=== PATIENT | female | born 1970 | race Caucasian/White ===

== ENCOUNTER 2021-08-15 19:10 | Emergency (ER) | payer OTHER, MEDICAID ==
[~2021-08-15] VITALS: Ht 167.6 cm; Wt 90.7 kg
--- NOTE | 2021-08-15 19:17 | NUR ---
Patient to ER bed 08 to gown for evaluation. Side rails up.
[2021-08-15 19:23] VITALS: BP_SYST 125
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
--- NOTE | 2021-08-15 19:34 | NUR ---
in to see patient.
[2021-08-15] MEDS ORDERED: cefTRIAXone 1 GM in LIDOCAINE 1%, 20 ML MDV 2.1 ML IM ONE (19:45)
[2021-08-15] MEDS ORDERED: AZITHROMYCIN 250 MG TABLET PO ONE (19:45)
[2021-08-15 19:49] LABS: BILIRUBIN,URINE NEGATIVE (NEGATIVE); BLOOD, URINE NEGATIVE (NEGATIVE); CLARITY/URINE SL CLOUDY (CLEAR); COLOR,URINE YELLOW (YELLOW); GLUCOSE,URINE NEGATIVE (NEGATIVE); KETONES,URINE NEGATIVE (NEGATIVE); LEUKOCYTE ESTERASE ,URINE NEGATIVE (NEGATIVE); NITRITE, URINE NEGATIVE (NEGATIVE); PROTEIN URINE NEGATIVE (NEGATIVE); UROBILINOGEN,URINE 0.2 (0.2-1.0)
[2021-08-15 20:01] LABS: BACTERIA,URINE MODERATE /HPF (None Seen); MUCUS,URINE None Seen /LPF (None Seen); RBC,URINE NONE SEEN /HPF (0-3)
--- NOTE | 2021-08-15 20:09 | NUR ---
patient is getting x ray
--- NOTE | 2021-08-15 20:29 | NUR ---
Pt requesting pain medication , notified
[2021-08-15] MEDS ORDERED: ACETAMINOPHEN 325 MG TABLET PO ONE (20:30)
[2021-08-15] MEDS ORDERED: ACET325T53 PO (20:35)
[2021-08-15] MEDS ORDERED: CYCL10TA24 PO (20:35)
[2021-08-15] MEDS ORDERED: MORPHINE 2 MG/ML INJ. SYRINGE IM ONE (20:45)
[2021-08-15] MEDS ORDERED: ONDANSETRON 4 MG ODT TAB PO ONE (20:45)
[2021-08-15 21:36] VITALS: BP_SYST 116
--- NOTE | 2021-08-15 21:36 | NUR ---
Patient given written and verbal discharge instructions and verbalizes understanding. ER MD discussed with patient the results and treatment provided. Patient in stable condition. ID arm band removed. Rx of flexeril and tylenol given. Patient educated on pain management and to follow up with PMD. Pain Scale 0/10 Opportunity for questions provided and answered. Medication side effect fact sheet provided.
[2021-08-18 17:07] LABS: CHLAMYDIA TRACHOMATIS NAA Negative (Negative); NEISSERIA GONORRHOEAE NAA Negative (Negative)
== END 2021-08-15 21:36 | disposition home or self-care (01) ==
LOC: SED 19:10
DX: M54.2 Cervicalgia (principal); M25.561 Pain in right knee; M25.562 Pain in left knee; W01.0XXA Fall on same level from slipping, tripping and stumbling without subsequent striking against object, initial encounter; Y93.89 Activity, other specified; Y92.89 Other specified places as the place of occurrence of the external cause; Y99.8 Other external cause status
CPT/HCPCS: 99284; 87491; 87591; 81000; 87086; 72040; 72072; 72100; 73560; 96372; Q0162; J0696; J2001; J2270; Q0144

== ENCOUNTER 2022-04-21 13:35 | Emergency (ER) | payer OTHER, MEDICAID ==
[~2022-04-21] VITALS: Ht 165.1 cm; Wt 88.5 kg
[~2022-04-21 13:35] MED LIST: ACET325T53 PO; CYCL10TA24 PO
[2022-04-21 13:40] VITALS: BP_SYST 108
[2022-04-21 14:38] LABS: BILIRUBIN,URINE NEGATIVE (NEGATIVE); BLOOD, URINE NEGATIVE (NEGATIVE); CLARITY/URINE SL CLOUDY (CLEAR); COLOR,URINE YELLOW (YELLOW); GLUCOSE,URINE NEGATIVE (NEGATIVE); KETONES,URINE NEGATIVE (NEGATIVE); LEUKOCYTE ESTERASE ,URINE NEGATIVE (NEGATIVE); NITRITE, URINE NEGATIVE (NEGATIVE); PH,URINE 6.5 (5.0-8.0); PROTEIN URINE NEGATIVE (NEGATIVE); UROBILINOGEN,URINE 0.2 (0.2-1.0)
[2022-04-21] MEDS ORDERED: NACL 0.9% 1,000 ML IV ONE (16:00)
[2022-04-21] MEDS ORDERED: fentaNYL CITRATE/PF 100 MCG/2 ML AMP IVP ONE (16:00)
[2022-04-21] MEDS ORDERED: ONDANSETRON HCL 4 MG/2 ML VIAL IVP ONE (16:00)
[2022-04-21] MEDS ORDERED: KETOROLAC TROMETHAMINE 30 MG VIAL IVP ONE (16:00)
[2022-04-21 16:41] LABS: BASOPHILS % (AUTO) 0.2 % (0.0-2.0); EOSINOPHILS # (AUTO) 0.1 K/uL (0.0-0.4); EOSINOPHILS % (AUTO) 1.1 % (0.0-4.0); HEMATOCRIT 35.5 % (36-48); HEMOGLOBIN 11.9 g/dL (12.0-16.0); LYMPHOCYTES # (AUTO) 2.4 K/uL (1.0-5.5); LYMPHOCYTES % (AUTO) 26.1 % (20.5-51.5); MEAN CORPUSCULAR HEMOGLOBIN 32 pg (27-31); MEAN CORPUSCULAR HGB CONC 34 % (32-36); MEAN CORPUSCULAR VOLUME 96 fL (79.0-98.0); MONOCYTES # (AUTO) 0.6 K/uL (0.0-1.0); MONOCYTES % (AUTO) 6.9 % (1.7-9.3); NEUTROPHILS # (AUTO) 6.1 K/uL (1.8-7.7); NEUTROPHILS % (AUTO) 65.7 % (40.0-70.0); PLATELET COUNT (AUTO) 252 K/uL (130-430); RED CELL DISTRIBUTION WIDTH 13.3 % (9.0-15.0); WHITE BLOOD COUNT (AUTO) 9.2 K/uL (4.8-10.8)
[2022-04-21 16:55] LABS: PROTHROMBIN TIME 9.8 SECS (9.5-12.5)
[2022-04-21 17:04] LABS: ALANINE AMINOTRANSFERASE 24 U/L (12-78); ALBUMIN 3.3 g/dL (3.4-4.8); ANION GAP 9 (5-15); ASPARTATE AMINOTRANSFERASE 15 U/L (10-37); CALCIUM 8.7 mg/dL (8.4-11.0); CHLORIDE 105 mmol/L (98-107); CREATININE 0.93 mg/dL (0.55-1.30); GLUCOSE 95 mg/dL (70-99); TOTAL BILIRUBIN 0.6 mg/dL (0.0-1.0); UREA NITROGEN, BLOOD 14 mg/dL (8-21)
[2022-04-21 17:06] LABS: GFR AFRICAN AMERICAN 82 mL/min (>90)
[2022-04-21] MEDS ORDERED: MORPHINE 4 MG INJ. 4 MG/ML VIAL IVP ONE (17:15)
== END 2022-04-21 18:15 | disposition home or self-care (01) ==
LOC: SED 13:35
DX: R10.9 Unspecified abdominal pain (principal); R11.2 Nausea with vomiting, unspecified; R50.9 Fever, unspecified; J45.909 Unspecified asthma, uncomplicated; Z79.899 Other long term (current) drug therapy
CPT/HCPCS: 99285; 74176; 96374; 71045; 96375; 96361; 80053; 85025; 85610; 85730; 87040; 84484; 36415; 93005; 76376; 81025; 83605; 81003; J1885; J2405; J3010; J2270; J7030

== ENCOUNTER 2022-04-24 14:42 | Emergency (ER) | payer OTHER ==
[~2022-04-24] VITALS: Ht 167.6 cm; Wt 88.5 kg
[2022-04-24 15:27] VITALS: BP_SYST 145
[2022-04-24] MEDS ORDERED: KETOROLAC TROMETHAMINE 60 MG/2 ML VIAL IM ONE (17:30)
[2022-04-24 18:28] LABS: BILIRUBIN,URINE NEGATIVE (NEGATIVE); BLOOD, URINE NEGATIVE (NEGATIVE); CLARITY/URINE CLEAR (CLEAR); COLOR,URINE YELLOW (YELLOW); GLUCOSE,URINE NEGATIVE (NEGATIVE); KETONES,URINE NEGATIVE (NEGATIVE); LEUKOCYTE ESTERASE ,URINE NEGATIVE (NEGATIVE); NITRITE, URINE NEGATIVE (NEGATIVE); PH,URINE 6.5 (5.0-8.0); PROTEIN URINE NEGATIVE (NEGATIVE); UROBILINOGEN,URINE 0.2 (0.2-1.0)
[2022-04-24] MEDS ORDERED: MORPHINE 4 MG INJ. 4 MG/ML VIAL IM ONE (19:00)
[2022-04-24] MEDS ORDERED: BACL20TA PO (19:17)
[2022-04-24] MEDS ORDERED: DICL75TA5 PO (19:17)
[2022-04-24 19:24] VITALS: BP_SYST 132
== END 2022-04-24 19:24 | disposition home or self-care (01) ==
LOC: SED 14:42
DX: M54.50 Low back pain, unspecified (principal); M51.36 Other intervertebral disc degeneration, lumbar region; G89.29 Other chronic pain; R10.9 Unspecified abdominal pain; J45.909 Unspecified asthma, uncomplicated; Z79.899 Other long term (current) drug therapy
CPT/HCPCS: 99285; 72131; 76376; 74176; 96372; 81003; J1885; J2270

== ENCOUNTER 2022-05-01 19:33 | Emergency (ER) | payer OTHER ==
[~2022-05-01] VITALS: Ht 165.1 cm; Wt 86.2 kg
[~2022-05-01 19:33] MED LIST changes: +BACL20TA PO; +DICL75TA5 PO
[2022-05-01 20:14] VITALS: BP_SYST 113
--- NOTE | 2022-05-01 20:20 | NUR ---
Pt with c/o right flank pain that started yesterday, pt rated pain 10/10 and states she cannot walk. Pt denies urinary symptoms, N/V, and fever. ROBER. requested for MSE.
--- NOTE | 2022-05-01 20:30 | NUR ---
DR. PHILLIPS WITH PATIENT IN TRIAGE FOR MSE.
[2022-05-01 20:59] LABS: BASOPHILS % (AUTO) 0.3 % (0.0-2.0); EOSINOPHILS # (AUTO) 0.1 K/uL (0.0-0.4); EOSINOPHILS % (AUTO) 0.9 % (0.0-4.0); HEMATOCRIT 39.6 % (36-48); HEMOGLOBIN 13.2 g/dL (12.0-16.0); LYMPHOCYTES # (AUTO) 2.5 K/uL (1.0-5.5); LYMPHOCYTES % (AUTO) 26.5 % (20.5-51.5); MEAN CORPUSCULAR HEMOGLOBIN 32 pg (27-31); MEAN CORPUSCULAR HGB CONC 33 % (32-36); MEAN CORPUSCULAR VOLUME 96 fL (79.0-98.0); MONOCYTES # (AUTO) 0.7 K/uL (0.0-1.0); MONOCYTES % (AUTO) 7.1 % (1.7-9.3); NEUTROPHILS # (AUTO) 6.3 K/uL (1.8-7.7); NEUTROPHILS % (AUTO) 65.2 % (40.0-70.0); PLATELET COUNT (AUTO) 279 K/uL (130-430); RED BLOOD CELL COUNT(AUTO) 4.11 MIL/uL (4.2-6.2); RED CELL DISTRIBUTION WIDTH 13.5 % (9.0-15.0); WHITE BLOOD COUNT (AUTO) 9.6 K/uL (4.8-10.8)
--- NOTE | 2022-05-01 21:00 | NUR ---
DR. PHILLIPS CANCELLED URINE SAMPLE.
[2022-05-01 21:21] LABS: ALBUMIN 3.8 g/dL (3.4-4.8); CALCIUM 9.3 mg/dL (8.4-11.0); CREATININE 0.94 mg/dL (0.55-1.30); TOTAL BILIRUBIN 0.6 mg/dL (0.0-1.0)
[2022-05-01 22:33] LABS: C-REACTIVE PROTEIN QUANT 8.5 mg/dL (0-0.5)
[2022-05-01] MEDS ORDERED: IBUP-1969 PO (22:44)
[2022-05-01] MEDS ORDERED: NITR-85 PO (22:44)
[2022-05-01] MEDS ORDERED: HYDR-3917 PO (22:44)
[2022-05-01] MEDS ORDERED: cefTRIAXone 1 GM in LIDOCAINE 1%, 20 ML MDV 2.1 ML IM ONE (23:15)
[2022-05-01 23:33] VITALS: BP_SYST 113
--- NOTE | 2022-05-01 23:33 | NUR ---
Patient given written and verbal discharge instructions and verbalizes understanding. ER DR. PHILLIPS discussed with patient the results and treatment provided. Patient in stable condition. ID arm band removed. Rx of NORCO, IBUPROFEN, AND MACROBID given. Patient educated on pain management and to follow up with PMD. Pain Scale 0. Opportunity for questions provided and answered. Medication side effect fact sheet provided.
== END 2022-05-01 23:33 | disposition home or self-care (01) ==
LOC: SED 19:33
DX: N12 Tubulo-interstitial nephritis, not specified as acute or chronic (principal); R10.9 Unspecified abdominal pain; R30.0 Dysuria; R35.0 Frequency of micturition; J45.909 Unspecified asthma, uncomplicated; Z79.899 Other long term (current) drug therapy
CPT/HCPCS: 99285; 74176; 80053; 82150; 84703; 83690; 85025; 86140; 36415; 76376; 96372; 83605; J0696; J2001

== ENCOUNTER 2022-05-23 11:08 | Emergency (ER) | payer OTHER ==
[~2022-05-23] VITALS: Ht 167.6 cm; Wt 86.2 kg
[~2022-05-23 11:08] MED LIST changes: +HYDR-3917 PO; +IBUP-1969 PO; +NITR-85 PO
[2022-05-23 11:10] VITALS: BP_SYST 114; BP_SYST 142
--- NOTE | 2022-05-23 11:10 | NUR ---
BROUGHT BACK TO BED #7 AND TRIAGED, REPORT GIVEN TO JUANA
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
--- NOTE | 2022-05-23 11:59 | NUR ---
DR CAMP AT BEDSIDE FOR EXAM
[2022-05-23] MEDS ORDERED: methocarbamoL 500 MG TABLET PO ONE (12:15)
[2022-05-23] MEDS ORDERED: ONDANSETRON 4 MG ODT TAB PO ONE (12:15)
[2022-05-23] MEDS ORDERED: MORPHINE 4 MG INJ. 4 MG/ML VIAL IM ONE (12:15)
[2022-05-23] MEDS ORDERED: LIDOCAINE PATCH 5% 1 EA TP ONE (12:15)
--- NOTE | 2022-05-23 12:45 | NUR ---
MEDICATED ORDERED, WILL CONT TO MONITOR
--- NOTE | 2022-05-23 13:16 | NUR ---
PT TO XRAY
[2022-05-23] MEDS ORDERED: METH-634 PO (13:54)
[2022-05-23] MEDS ORDERED: NAPR-1172 PO (13:54)
[2022-05-23] MEDS ORDERED: DICL20GE TP (13:54)
[2022-05-23] MEDS ORDERED: LIDO1ADH22 TP (13:54)
[2022-05-23 14:10] VITALS: BP_SYST 114
--- NOTE | 2022-05-23 14:25 | NUR ---
Patient given written and verbal discharge instructions and verbalizes understanding. ER MD discussed with patient the results and treatment provided. Patient in stable condition. ID arm band removed. Rx of VOLTAREN, LIDOPRO PATCH, ROBAXIN AND NAPROSYN given. Patient educated on pain management and to follow up with PMD. Pain Scale 0/10. Opportunity for questions provided and answered. Medication side effect fact sheet provided.
== END 2022-05-23 14:25 | disposition home or self-care (01) ==
LOC: SED 11:08
DX: S16.1XXA Strain of muscle, fascia and tendon at neck level, initial encounter (principal); S39.012A Strain of muscle, fascia and tendon of lower back, initial encounter; M41.9 Scoliosis, unspecified; J45.909 Unspecified asthma, uncomplicated; Z79.899 Other long term (current) drug therapy; V49.40XA Driver injured in collision with unspecified motor vehicles in traffic accident, initial encounter; Y93.89 Activity, other specified; Y92.89 Other specified places as the place of occurrence of the external cause; Y99.8 Other external cause status
CPT/HCPCS: 99284; 72110; 96372; Q0162; J2270

== ENCOUNTER 2022-07-31 22:05 | Emergency (ER) | payer OTHER ==
[~2022-07-31] VITALS: Ht 167.6 cm; Wt 77.1 kg
[~2022-07-31 22:05] MED LIST changes: +DICL20GE TP; +LIDO1ADH22 TP; +METH-634 PO; +NAPR-1172 PO
[2022-07-31 22:17] VITALS: BP_SYST 106
--- NOTE | 2022-07-31 22:17 | NUR ---
Triaged and placed patient back to the waiting room. No acute respiratory distress at this time. VSS. Informed patient to notify ED staff for any changes in condition or worsening of symptoms while waiting to be seen by a provider. Patient verbalized understanding.
[2022-07-31 23:55] LABS: BASOPHILS % (AUTO) 0.3 % (0.0-2.0); EOSINOPHILS # (AUTO) 0.1 K/uL (0.0-0.4); EOSINOPHILS % (AUTO) 0.7 % (0.0-4.0); HEMATOCRIT 38.7 % (36-48); LYMPHOCYTES # (AUTO) 2.7 K/uL (1.0-5.5); LYMPHOCYTES % (AUTO) 26.8 % (20.5-51.5); MEAN CORPUSCULAR HEMOGLOBIN 33 pg (27-31); MEAN CORPUSCULAR HGB CONC 34 % (32-36); MEAN CORPUSCULAR VOLUME 98 fL (79.0-98.0); MONOCYTES # (AUTO) 0.6 K/uL (0.0-1.0); MONOCYTES % (AUTO) 5.9 % (1.7-9.3); NEUTROPHILS # (AUTO) 6.6 K/uL (1.8-7.7); NEUTROPHILS % (AUTO) 66.3 % (40.0-70.0); PLATELET COUNT (AUTO) 256 K/uL (130-430); RED BLOOD CELL COUNT(AUTO) 3.95 MIL/uL (4.2-6.2); RED CELL DISTRIBUTION WIDTH 13.1 % (9.0-15.0); WHITE BLOOD COUNT (AUTO) 9.9 K/uL (4.8-10.8)
--- NOTE | 2022-08-01 00:36 | NUR ---
Patient to ER bed 06 to gown for evaluation. Side rails up. Report given to DANA OCFFEY
[2022-08-01 00:45] LABS: CALCIUM 9.2 mg/dL (8.4-11.0); CREATININE 0.99 mg/dL (0.55-1.30)
[2022-08-01] MEDS ORDERED: ONDANSETRON HCL 4 MG/2 ML VIAL IVP ONE (00:45)
[2022-08-01] MEDS ORDERED: NACL 0.9% 1,000 ML IV ONE (00:45)
[2022-08-01 00:50] LABS: ALBUMIN 3.2 g/dL (3.4-4.8); TOTAL BILIRUBIN 0.4 mg/dL (0.0-1.0)
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
--- NOTE | 2022-08-01 01:30 | NUR ---
ER at bedside examining patient.
[2022-08-01 01:57] LABS: BILIRUBIN,URINE NEGATIVE (NEGATIVE); CLARITY/URINE SL CLOUDY (CLEAR); COLOR,URINE YELLOW (YELLOW); GLUCOSE,URINE NEGATIVE (NEGATIVE); KETONES,URINE NEGATIVE (NEGATIVE); LEUKOCYTE ESTERASE ,URINE 2+ (NEGATIVE); NITRITE, URINE POSITIVE (NEGATIVE); PROTEIN URINE NEGATIVE (NEGATIVE); UROBILINOGEN,URINE 0.2 (0.2-1.0)
[2022-08-01] MEDS ORDERED: KETOROLAC TROMETHAMINE 30 MG VIAL IVP ONE (02:00)
[2022-08-01 02:14] LABS: BLOOD, URINE TRACE (NEGATIVE)
[2022-08-01 02:19] LABS: BACTERIA,URINE MANY /HPF (None Seen); WBC,URINE 20-50 /HPF (0-3)
[2022-08-01] MEDS ORDERED: ONDA-8 TL (02:41)
[2022-08-01] MEDS ORDERED: CEPH-548 PO (02:41)
--- NOTE | 2022-08-01 02:57 | NUR ---
Patient given written and verbal discharge instructions and verbalizes understanding. ER MD discussed with patient the results and treatment provided. Patient in stable condition. ID arm band removed. IV catheter removed intact and dressing applied, no active bleeding. Rx of CEPHALEXIN AND ONDANSETRON given. Patient educated on UTI VOMITING and to follow up with PMD. Pain Scale . Opportunity for questions provided and answered. Medication side effect fact sheet provided.
[2022-08-01 03:01] VITALS: BP_SYST 115
== END 2022-08-01 02:51 | disposition home or self-care (01) ==
LOC: SED 22:05
DX: K52.9 Noninfective gastroenteritis and colitis, unspecified (principal); N39.0 Urinary tract infection, site not specified; R11.2 Nausea with vomiting, unspecified; J45.909 Unspecified asthma, uncomplicated; F17.200 Nicotine dependence, unspecified, uncomplicated; Z79.899 Other long term (current) drug therapy
CPT/HCPCS: 99284; 80053; 81000; 83690; 85025; 87086; 36415; 96374; 96361; 96375; J1885; J2405; J7030

== ENCOUNTER 2023-02-22 15:33 | Emergency (ER) | payer OTHER ==
[~2023-02-22] VITALS: Ht 152.4 cm; Wt 81.6 kg
[~2023-02-22 15:33] MED LIST changes: +CEPH-548 PO; +ONDA-8 TL
[2023-02-22 16:02] VITALS: BP_SYST 109; PULSE 110; RESP 22; TEMP 98.3; O2SAT 98
[2023-02-22] MEDS ORDERED: KETOROLAC TROMETHAMINE 60 MG/2 ML VIAL IM ONE (16:45)
[2023-02-22] MEDS ORDERED: HYDROcodone/ACETAMIN 10-325 MG TAB PO ONE (16:45)
[2023-02-22] MEDS ORDERED: MORPHINE 4 MG INJ. 4 MG/ML VIAL IM ONE ×2 (16:45→18:00)
[2023-02-22] MEDS ORDERED: IBUP-1969 PO (17:25)
[2023-02-22] MEDS ORDERED: HYDR-3917 PO (17:25)
[2023-02-22 18:07] VITALS: BP_SYST 111; PULSE 97; RESP 20; TEMP 98.3; O2SAT 98
== END 2023-02-22 18:07 | disposition home or self-care (01) ==
LOC: SED 15:33
DX: S33.5XXA Sprain of ligaments of lumbar spine, initial encounter (principal); J45.909 Unspecified asthma, uncomplicated; Z85.850 Personal history of malignant neoplasm of thyroid; Z79.899 Other long term (current) drug therapy; X58.XXXA Exposure to other specified factors, initial encounter; Y93.89 Activity, other specified; Y92.89 Other specified places as the place of occurrence of the external cause; Y99.8 Other external cause status
CPT/HCPCS: 99284; 72100; 96372; J2270